=== PATIENT | female | born 1975 ===

== ENCOUNTER 2018-05-09 09:16 | Emergency (ER) | payer BC ==
[2018-05-09 09:30] VITALS: RESP 18
--- NOTE | 2018-05-09 10:38 | C.PDOC ---
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 Patient states that she was referred from bloodwork for palpitations, but reports that due to her syncopal episode it was unable to be completed. She denies palpitations at the moment, chest pain, and shortness of breath. Time Seen by Provider: 05/09/18 09:19 Chief Complaint (Nursing): Syncope History Per: Patient History/Exam Limitations: no limitations Onset/Duration Of Symptoms: Hrs Current Symptoms Are (Timing): Still Present Past Medical History Reviewed: Historical Data, Nursing Documentation, Vital Signs Vital Signs: Last Vital Signs Temp 98.5 F 05/09/18 12:29 Pulse 64 05/09/18 12:29 Resp 18 05/09/18 09:24 BP 98/62 L 05/09/18 12:29 Pulse Ox 99 05/09/18 15:17 - Medical History PMH: No Chronic Diseases Surgical History: No Surg Hx Family History: States: No Known Family Hx - Social History Hx Alcohol Use: No Hx Substance Use: No - Immunization History Hx Tetanus Toxoid Vaccination: Yes Hx Influenza Vaccination: No Hx Pneumococcal Vaccination: No Review Of Systems Except As Marked, All Systems Reviewed And Found Negative. Cardiovascular: Positive for: Other (syncope) Physical Exam - Physical Exam Appears: Non-toxic, No Acute Distress Skin: Warm, Dry Head: Atraumatic, Normacephalic Eye(s): bilateral: Normal Inspection Neck: Normal, Supple Chest: Symmetrical Cardiovascular: Rhythm Regular, No Murmur Respiratory: Normal Breath Sounds, No Rales, No Rhonchi, No Wheezing Gastrointestinal/Abdominal: Normal Exam, Soft, No Tenderness, No Guarding, No Rebound Extremity: Normal ROM ED Course And Treatment - Laboratory Results Result Diagrams: 05/09/18 10:51 05/09/18 10:51 ECG: Viewed By Me ECG Rhythm: Sinus Rhythm ECG Interpretation: Normal Interpretation Of ECG: Normal sinus rhythm at 72 bpm, normal intervals, normal axis. O2 Sat by Pulse Oximetry: 99 (RA) Pulse Ox Interpretation: Normal Medical Decision Making Medical Decision Making: Assessment: Vasovagal syncopal episode Plan: EKG CMP Free T4 Hemoglobin A1C Lipid Panel TSH CBC Vitamin D 1516- patient states improvement. will discharge home to follow up with pmd within 2 days Disposition Counseled Patient/Family Regarding: Studies Performed, Diagnosis, Need For Followup - Disposition Disposition: HOME/ ROUTINE Disposition Time: 15:17 Condition: STABLE Additional Instructions: follow up with your doctor within 2 days call to make an appointment return to ER if symptoms worsens or progress Instructions: Vasovagal Response (DC) Forms: [facility] (Persian), General Discharge Instructions - Clinical Impression Clinical Impression: Fainting, Vasovagal near syncope
[2018-05-09 11:11] LABS: BASO % 0.5 % (0.0-2.0); EOS # 0.3 K/uL (0.0-0.7); EOS % 3.8 % (0.0-4.0); HEMOGLOBIN 10.6 g/dL (11.0-16.0); LYMPH # 1.9 K/uL (1.0-4.3); LYMPH % 23.5 % (20.0-40.0); MEAN CORPUSCULAR HEMOGLOBIN 22.5 pg (27.0-31.0); MEAN CORPUSCULAR HGB CONC 32.1 g/dL (33.0-37.0); MEAN PLATELET VOLUME 7.7 fL (7.2-11.7); MONO # 0.5 K/uL (0.0-0.8); MONO % 6.8 % (0.0-10.0); NEUT # 5.2 K/uL (1.8-7.0); NEUT % 65.4 % (50.0-75.0); RBC 4.7 Mil/uL (3.80-5.20); RED CELL DISTRIBUTION WIDTH 18.2 % (11.5-14.5)
[2018-05-09 11:28] LABS: ALB/GLOB RATIO 1.3 (1.0-2.1); ALBUMIN 4.2 g/dL (3.5-5.0); ALT/SGPT 25 U/L (9-52); AST/SGOT 20 U/L (14-36); BLOOD UREA NITROGEN 10 mg/dL (7-17); CALCIUM 9.3 mg/dl (8.6-10.4); GFR NON-AFRICAN AMERICAN > 60; HDL CHOLESTEROL 38 mg/dL (30-70)
[2018-05-09 11:39] LABS: LDL CHOLESTEROL 123 mg/dL (0-129)
[2018-05-09 12:30] VITALS: TEMP 98.5
[2018-05-09 15:31] VITALS: BP 97/56; PULSE 69; O2SAT 97
--- NOTE | 2018-05-09 19:42 | PCM.RRT ---
<Lashaun Simons - Last Filed: 05/09/18 19:40> SENIOR [employer] SOFTWARE DEVELOPER Nurses Assessment - Situation Date: 05/09/18 Time SENIOR JAVA SOFTWARE DEVELOPER was called: 09:02 SENIOR JAVA SOFTWARE DEVELOPER Responder Arrival Time:: 09:03 SENIOR JAVA SOFTWARE DEVELOPER Location:: Laboratory SENIOR J[employer] SOFTWARE DEVELOPER Reason for Call: Change in Mental Status SENIOR JAVA SOFTWARE DEVELOPER Called By: RN - IV IV Inserted during SENIOR JAVA SOFTWARE DEVELOPER?: No - Respiratory SENIOR [employer] SOFTWARE DEVELOPER Delivery Method: Room Air, Nasal Cannula @L/min Oxygen Flow Rate: 2 Received Nebulizer Treatments: No Was the Patient Ventilated with Bag/Mask 100% O2?: No Secretions Suctioned?: No Was the Patient Intubated?: No Was the Patient Placed on a Ventilator?: No - Diagnostic Test Ordered EKG: No Chest X-Ray: No CT Scan: No CPR started during SENIOR JAVA SOFTWARE DEVELOPER?: No - Vital Signs Vital Signs: T 97.8 HR 80 BP 100/70 RR 22 O2 97 RA -> 100 NC 2L BG 121 after 1 cup juice - Virgen Coma Scale Coma Scale Eye Opening: Spontaneous Coma Scale Motor: Obeys Commands Movement Coma Scale Verbal: Oriented Coma Scale Total: 15 - Time SENIOR JAVA SOFTWARE DEVELOPER Ended Time SENIOR JAVA SOFTWARE DEVELOPER Ended: 09:15 - Vital Signs at end of SENIOR JAVA SOFTWARE DEVELOPER Vital Signs at end of SENIOR JAVA SOFTWARE DEVELOPER: T 97.8 HR 69 BP 100/70 RR 18 O2 99 RA - Recommendations 5) SENIOR J[employer] SOFTWARE DEVELOPER Level of Care Recommendations: Discharge to Emergency Room (Patient was at [facility] for routine fasting labwork. Her free of needles as well as dehydration from not drinking coffee or eating breakfast made her light-headed, and she had a near syncopal episode. The nurse gave her 1 cup of juice before calling the SENIOR JAVA SOFTWARE DEVELOPER. Patient pallor returned to pink and she was transferred to ED.) Notifications: Attending Physician <Luther Barreto - Last Filed: 05/11/18 19:21> Attending/Attestation - Attestation I have personally seen and examined this patient.: Yes I have fully participated in the care of the patient.: Yes I have reviewed all pertinent clinical information, including history, physical exam and plan: Yes Notes (Text): Seen and examined during SENIOR JAVA SOFTWARE DEVELOPER at Lab. patient was NPO for blood test felt dizzy and became pale. She states that she is scared of needle/blood test Vitals stable.Patient found pale and sweaty.Taken to ER for check up. 05/11/18 19:19
--- NOTE | 2018-05-11 | CARD ---
APPROVED REPORT Date of service: 05/09/2018 EKG Measurement Heart [id number] <Conclusion> Normal sinus rhythm Normal ECG
== END 2018-05-09 15:38 | disposition home or self-care (01) ==
LOC: C.ER 09:16
DX: R55 Syncope and collapse (principal)